=== PATIENT | male | born 1985 | race Caucasian/White ===

== ENCOUNTER 2017-08-02 08:59 | Emergency (ER) | payer SELFPAY ==
[~2017-08-02] VITALS: Ht 170.2 cm; Wt 80.0 kg
[2017-08-02 09:15] VITALS: BP 128/72
[2017-08-02] MEDS ORDERED: LEVETIRACETAM 500 MG TABLET ONE (09:29)
[2017-08-02] MEDS ORDERED: LEVETIRACETAM 100 MG/ML ORAL SOL PO ONE (09:30)
[2017-08-02] MEDS ORDERED: LEVETIRACETAM 500 MG TABLET PO ONE (10:30)
[2017-08-02] MEDS ORDERED: PLEASE ENTER ALLERGIES MC SCH (10:30)
== END 2017-08-02 10:57 | disposition home or self-care (01) ==
LOC: ED 10:56
DX: G40.909 Epilepsy, unspecified, not intractable, without status epilepticus (principal)
CPT/HCPCS: 99283